=== PATIENT | female | born 1995 | race Asian ===

== ENCOUNTER 2018-05-02 15:39 | Emergency (ER) | payer OTHER ==
[~2018-05-02] VITALS: Ht 162.6 cm; Wt 52.2 kg
[2018-05-02 15:52] VITALS: TEMP 98.8
[2018-05-02 16:57] VITALS: BP 153/83
== END 2018-05-02 16:58 | disposition home or self-care (01) ==
LOC: ED 15:39
DX: R50.9 Fever, unspecified (principal); J03.90 Acute tonsillitis, unspecified
CPT/HCPCS: 87651; 99282

== ENCOUNTER 2019-12-30 09:27 | Emergency (ER) | payer OTHER ==
[~2019-12-30] VITALS: Ht 165.1 cm; Wt 52.2 kg
[2019-12-30 12:00] VITALS: BP 125/76; TEMP 98
== END 2019-12-30 12:00 | disposition home or self-care (01) ==
LOC: ED 09:27
DX: M94.0 Chondrocostal junction syndrome [Tietze] (principal); S20.211A Contusion of right front wall of thorax, initial encounter; W18.39XA Other fall on same level, initial encounter; Y92.89 Other specified places as the place of occurrence of the external cause
CPT/HCPCS: 81025; 99282